=== PATIENT | male | born 1970 | race Hispanic/Latino ===

== ENCOUNTER → 2022-09-07 | Outpatient (CLI) | payer MEDICAID ==
[2022-09-07 09:14] LABS: BASOPHILS % (AUTO) 0.4 % (0.0-5.0); EOSINOPHILS % (AUTO) 1.3 % (0.0-8.0); HEMATOCRIT 45.8 % (42-54); LYMPHOCYTES % (AUTO) 30.5 % (21.0-51.0); MEAN CORPUSCULAR HEMOGLOBIN 30.5 pg (27.0-33.0); MEAN CORPUSCULAR HGB CONC 32.5 g/dL (32.0-36.0); MEAN CORPUSCULAR VOLUME 93.7 fL (79-99); MONOCYTES % (AUTO) 6.1 % (3.0-13.0); NEUTROPHILS % (AUTO) 61.3 % (40.0-77.0); PLATELET COUNT (AUTO) 273 K/uL (130-400); RED BLOOD CELL COUNT(AUTO) 4.89 MIL/uL (4.50-6.20); RED CELL DISTRIBUTION WIDTH 12.8 % (11.0-15.5); WHITE BLOOD COUNT (AUTO) 7.8 K/uL (4.8-10.8)
[2022-09-07 09:40] LABS: ALBUMIN 3.9 g/dL (3.5-5.0); POTASSIUM 4.2 mmol/L (3.5-5.1); TOTAL PROTEIN, SERUM 7.1 g/dL (6.0-8.3)
== END | disposition home or self-care (01) ==
LOC: LAB 08:31
PROVIDERS: ATTEND Internal Medicine Gastroenterology
DX: R10.12 Left upper quadrant pain (principal)
CPT/HCPCS: 36415; 80053; 82150; 83690; 85025

== ENCOUNTER → 2022-10-17 | Outpatient (CLI) | payer MEDICAID ==
[2022-10-17 12:27] LABS: BASOPHILS % (AUTO) 0.3 % (0.0-5.0); EOSINOPHILS % (AUTO) 0.8 % (0.0-8.0); HEMATOCRIT 46.3 % (42-54); LYMPHOCYTES % (AUTO) 22.5 % (21.0-51.0); MEAN CORPUSCULAR HEMOGLOBIN 30.9 pg (27.0-33.0); MEAN CORPUSCULAR HGB CONC 32.6 g/dL (32.0-36.0); MEAN CORPUSCULAR VOLUME 94.9 fL (79-99); MONOCYTES % (AUTO) 6.4 % (3.0-13.0); NEUTROPHILS % (AUTO) 69.4 % (40.0-77.0); PLATELET COUNT (AUTO) 248 K/uL (130-400); RED BLOOD CELL COUNT(AUTO) 4.88 MIL/uL (4.50-6.20); RED CELL DISTRIBUTION WIDTH 13.2 % (11.0-15.5); WHITE BLOOD COUNT (AUTO) 8.8 K/uL (4.8-10.8)
[2022-10-17 12:43] LABS: ALBUMIN 3.8 g/dL (3.5-5.0); CREATININE 1.2 mg/dL (0.5-1.5); POTASSIUM 4.1 mmol/L (3.5-5.1); TOTAL PROTEIN, SERUM 7.3 g/dL (6.0-8.3)
== END | disposition home or self-care (01) ==
LOC: LAB 10:00
PROVIDERS: ATTEND Internal Medicine Gastroenterology
DX: R10.12 Left upper quadrant pain (principal)
CPT/HCPCS: 36415; 80053; 82150; 83690; 85025

== ENCOUNTER → 2022-10-20 | Outpatient (CLI) | payer MEDICAID ==
[~2022-10-20] MED LIST: IOHEXOL 350 MG/ML 100ML INFUS..BTL IV ONE
== END | disposition home or self-care (01) ==
LOC: RAH 10-19 10:00
PROVIDERS: ATTEND Internal Medicine Gastroenterology
DX: K57.90 Diverticulosis of intestine, part unspecified, without perforation or abscess without bleeding (principal); M47.815 Spondylosis without myelopathy or radiculopathy, thoracolumbar region; R16.0 Hepatomegaly, not elsewhere classified; R10.12 Left upper quadrant pain
CPT/HCPCS: 74178; Q9967

== ENCOUNTER 2024-01-14 08:11 | Observation (INO) | payer MEDICARE ==
[~2024-01-14] VITALS: Ht 167.6 cm; Wt 105.9 kg
[~2024-01-14 08:11] MED LIST changes: +AEC81 PO; +ATOR40TA69 PO; +CLOP-31 PO; +DICY20TA3 PO; -IOHEXOL 350 MG/ML 100ML INFUS..BTL IV ONE; +ISOS30TA92 PO; +LEVO-70 PO; +LINA72CA PO; +METO50TA18 PO; +METR-172 PO; +OMEP20TA20 PO; +RANO500T2 PO
[2024-01-14 08:33] LABS: BASOPHILS # (AUTO) 0.03 K/uL (0.00-0.20); BASOPHILS % (AUTO) 0.4 % (0.0-5.0); EOSINOPHILS # (AUTO) 0.09 K/uL (0.00-0.70); EOSINOPHILS % (AUTO) 1.2 % (0.0-8.0); HEMATOCRIT 45.4 % (42-54); IMMATURE GRANULOCYTE ABSOLUTE 0.03 K/uL (0-1); LYMPHOCYTES # (AUTO) 2.4 K/uL (1.0-4.8); LYMPHOCYTES % (AUTO) 32.8 % (21.0-51.0); MEAN CORPUSCULAR HEMOGLOBIN 30.6 pg (27.0-33.0); MEAN CORPUSCULAR HGB CONC 33.5 g/dL (32.0-36.0); MEAN CORPUSCULAR VOLUME 91.3 fL (79-99); MONOCYTES # (AUTO) 0.6 K/uL (0.1-1.0); MONOCYTES % (AUTO) 7.4 % (3.0-13.0); NEUTROPHILS # (AUTO) 4.3 K/uL (1.8-7.7); NEUTROPHILS % (AUTO) 57.8 % (40.0-77.0); PLATELET COUNT (AUTO) 206 K/uL (130-400); RED BLOOD CELL COUNT(AUTO) 4.97 MIL/uL (4.50-6.20); RED CELL DISTRIBUTION WIDTH 12.3 % (11.0-15.5); WHITE BLOOD COUNT (AUTO) 7.5 K/uL (4.8-10.8)
[2024-01-14] MEDS: ASPIRIN 325MG TAB PO ONE (08:35)
[2024-01-14] MEDS: ATORVASTATIN 40 MG TABLET PO ONE (08:35)
[2024-01-14 08:39] LABS: POTASSIUM 3.8 mmol/L (3.5-5.1)
[2024-01-14 08:43] LABS: INR 0.98 (0.85-1.15); PROTHROMBIN TIME 10.6 SEC (9.6-11.6)
[2024-01-14 08:45] LABS: PARTIAL THROMBOPLASTIN TIME 27.3 SEC (26.3-35.5)
[2024-01-14] MEDS: NITROGLYCERIN 0.4 MG SL TAB SL PRN (08:46)
[2024-01-14 09:07] LABS: APPEARANCE,URINE CLEAR (CLEAR); BILIRUBIN,URINE NEGATIVE (NEGATIVE); COLOR,URINE LIGHT-YELLOW (YELLOW); GLUCOSE, URINE (UA) NEGATIVE (NEGATIVE); KETONES,URINE NEGATIVE (NEGATIVE); LEUKOCYTE ESTERASE ,URINE NEGATIVE Leu/uL (NEGATIVE); NITRATE,URINE NEGATIVE (NEGATIVE); OCCULT BLOOD,URINE NEGATIVE (NEGATIVE); PH,URINE 5.5 (5.0-8.0); PROTEIN,URINE NEGATIVE (NEGATIVE); UROBILINOGEN,URINE 0.2 mg/dL (0.2-1.0)
[2024-01-14 09:10] LABS: ADD UA MICROSCOPIC NO
[2024-01-14] MEDS ORDERED: ONDA-243 PO (12:25)
[2024-01-14] MEDS ORDERED: PANT20TA18 PO (12:25)
[2024-01-14] MEDS ORDERED: DOXY100T2 PO (12:25)
[2024-01-14] MEDS ORDERED: PLEC3TAB2 PO (12:25)
[2024-01-14] MEDS ORDERED: ZOLPIDEM TARTRATE 5 MG TAB PO PRN (13:00)
[2024-01-14] MEDS ORDERED: BENZOCAINE/MENTH/CETYLPYRD CL 1 EACH LOZENGE MM PRN (13:00)
[2024-01-14] MEDS ORDERED: MAG/ALUM/SIMETH 30 ML UDCUP PO PRN (13:00)
[2024-01-14] MEDS ORDERED: ARTIFICAL TEARS SOL 15 ML OP PRN (13:00)
[2024-01-14] MEDS ORDERED: POLYETHYLENE GLYCOL 3350 17 GM POWD.PACK PO PRN (13:00)
[2024-01-14] MEDS ORDERED: ONDANSETRON 4MG INJ IV PRN (13:00)
[2024-01-14] MEDS ORDERED: GUAIFENESIN-DM 200/20 MG 10 ML PO PRN (13:00)
[2024-01-14] MEDS ORDERED: DIPHENHYDRAMINE HCL 25 MG CAPSULE PO PRN (13:00)
[2024-01-14] MEDS ORDERED: GUAIFENESIN SUGAR-FREE 100 MG/5 ML UDCUP PO PRN (13:00)
[2024-01-14] MEDS ORDERED: ALPRAZOLAM 0.5 MG TABLET PO PRN (13:00)
[2024-01-14] MEDS ORDERED: DiphenhydrAMINE HCL 50 MG/ML VIAL IV PRN (13:00)
[2024-01-14] MEDS ORDERED: LACTULOSE 20 GM/30 ML UDCUP PO PRN (13:00)
[2024-01-14] MEDS ORDERED: NITROGLYCERIN 0.4 MG SL TAB SL PRN (13:00)
[2024-01-14] MEDS ORDERED: MORPHINE 2 MG SYG IVP PRN (16:30)
[2024-01-14] MEDS: INSULIN LISPRO 100 UNIT/ML 3ML SQ SCH (16:30)
[2024-01-14] MEDS: CLOPIDOGREL 75MG TAB PO SCH (16:33)
[2024-01-14] MEDS: CLINDAMYCIN IVPB 600MG/50ML 50 ML IV SCH (16:33)
[2024-01-14 18:35] VITALS: O2SAT 97
[2024-01-14 19:00] VITALS: BP 139/84; PULSE 103; RESP 20
[2024-01-14] MEDS: ACETAMINOPHEN 325 MG TAB PO PRN (19:18)
[2024-01-14 20:10] VITALS: O2SAT 97
[2024-01-14] MEDS: FAMOTIDINE 20MG TAB PO SCH (21:10)
[2024-01-14] MEDS: METOPROLOL TARTRATE 50 MG TAB PO SCH (21:10)
[2024-01-14] MEDS: ATORVASTATIN 40 MG TABLET PO SCH (21:10)
[2024-01-14] MEDS: RANOLAZINE 500 MG TAB.SR.12H PO SCH (21:10)
[2024-01-14] MEDS: ENOXAPARIN SODIUM 40 MG/0.4 ML SYRINGE SQ SCH (21:11)
[2024-01-14] MEDS: HYDROCODONE/ACETAMINOPHEN 7.5/325 MG TAB PO PRN (21:18)
[2024-01-14 23:00] VITALS: BP 119/79; PULSE 68; RESP 21
[2024-01-15 04:00] VITALS: BP 121/68; PULSE 86; RESP 20
[2024-01-15 05:58] LABS: HEMATOCRIT 40.2 % (42-54); MEAN CORPUSCULAR HEMOGLOBIN 30.2 pg (27.0-33.0); MEAN CORPUSCULAR HGB CONC 33.3 g/dL (32.0-36.0); MEAN CORPUSCULAR VOLUME 90.5 fL (79-99); RED BLOOD CELL COUNT(AUTO) 4.44 MIL/uL (4.50-6.20); RED CELL DISTRIBUTION WIDTH 12.4 % (11.0-15.5); WHITE BLOOD COUNT (AUTO) 5.6 K/uL (4.8-10.8)
[2024-01-15 06:23] LABS: HEMOGLOBIN A1C 6.2 % (4.0-6.0)
[2024-01-15 06:25] LABS: ALBUMIN 3.4 g/dL (3.5-5.0); BILIRUBIN,TOTAL 1.4 mg/dL (0.2-1.0); MAGNESIUM 1.7 mg/dL (1.80-2.40); POTASSIUM 3.7 mmol/L (3.5-5.1); THYROID STIMULATING HORMONE 3.59 uIU/mL (0.36-3.74); TOTAL PROTEIN, SERUM 6.5 g/dL (6.0-8.3)
[2024-01-15 07:17] VITALS: BP 114/68; PULSE 63; RESP 18
[2024-01-15 08:00] VITALS: O2SAT 98
[2024-01-15] MEDS ORDERED: MAGNESIUM 2GM PREMIX 50ML 50 ML IV PRN (08:00)
[2024-01-15] MEDS: ISOSORBIDE MONO 30MG SR TAB PO SCH (09:00)
[2024-01-15] MEDS: PLECANATIDE 3 MG PO SCH (09:00)
[2024-01-15] MEDS: ASPIRIN 81 MG EC TAB PO SCH (09:00)
[2024-01-15 10:57] VITALS: BP 138/77; PULSE 63; RESP 18
[2024-01-15] MEDS: REGADENOSON 0.4 MG/5 ML PF SYG IVP SCH (15:29)
[2024-01-15 20:00] VITALS: BP 130/74; PULSE 76; RESP 20; O2SAT 96
[2024-01-15] MEDS: DOCUSATE SODIUM 100 MG CAP PO PRN (22:28)
[2024-01-15] MEDS: ACETAMINOPHEN 325 MG TAB PO PRN (22:44)
[2024-01-16] VITALS: BP 134/73; PULSE 70; RESP 20
[2024-01-16 04:00] VITALS: BP 122/69; PULSE 65; RESP 20
[2024-01-16 05:31] LABS: HEMATOCRIT 42.6 % (42-54); MEAN CORPUSCULAR HEMOGLOBIN 31.1 pg (27.0-33.0); MEAN CORPUSCULAR VOLUME 91.4 fL (79-99); RED BLOOD CELL COUNT(AUTO) 4.66 MIL/uL (4.50-6.20); RED CELL DISTRIBUTION WIDTH 12.4 % (11.0-15.5); WHITE BLOOD COUNT (AUTO) 6.2 K/uL (4.8-10.8)
[2024-01-16 05:44] LABS: ALBUMIN 3.5 g/dL (3.5-5.0); BILIRUBIN,DIRECT 0.2 mg/dL (0.0-0.3); CREATININE 0.8 mg/dL (0.5-1.3); MAGNESIUM 2.1 mg/dL (1.80-2.40); POTASSIUM 3.7 mmol/L (3.5-5.1); TOTAL PROTEIN, SERUM 6.6 g/dL (6.0-8.3)
[2024-01-16 08:00] VITALS: O2SAT 92
[2024-01-16 08:14] VITALS: BP 129/94; PULSE 75; RESP 17
[2024-01-16 11:57] VITALS: BP 117/75; PULSE 69; RESP 18
[2024-01-16] MEDS ORDERED: CLIN-141 PO (14:48)
== END 2024-01-16 15:25 | disposition home or self-care (01) ==
LOC: EDH 08:11 → EDHIP 12:59 → 4AH 17:45
PROVIDERS: ADMIT Internal Medicine; ATTEND Internal Medicine
DX: L03.116 Cellulitis of left lower limb (principal); I11.9 Hypertensive heart disease without heart failure; K76.0 Fatty (change of) liver, not elsewhere classified; E66.01 Morbid (severe) obesity due to excess calories; M79.89 Other specified soft tissue disorders; I25.709 Atherosclerosis of coronary artery bypass graft(s), unspecified, with unspecified angina pectoris; E11.9 Type 2 diabetes mellitus without complications; E78.00 Pure hypercholesterolemia, unspecified; K57.92 Diverticulitis of intestine, part unspecified, without perforation or abscess without bleeding; I25.2 Old myocardial infarction; R60.0 Localized edema; Z79.82 Long term (current) use of aspirin; Z95.1 Presence of aortocoronary bypass graft; Z68.36 Body mass index [BMI] 36.0-36.9, adult; Z88.0 Allergy status to penicillin; Z79.899 Other long term (current) drug therapy
CPT/HCPCS: 96372 ×3; 96365; 99285; 84484 ×5; 80048 ×2; 85025; 85378 ×2; 85610; 85730; 85651; 82948 ×7; 86140; 81003; 36415 ×3; 71045; 93970; 93925; 93005; 76376; 96366 ×2; 83036; 84443; 83735 ×2; 80053; 85027 ×2; 93017; 78452; 76700; 93306; 93356; 82150; 80076; 83690; G0378 ×46; J1650 ×4; J3490 ×5; J3475; J2785; A9500 ×2; 96374

== ENCOUNTER 2024-04-17 12:26 | Observation (INO) | payer MEDICARE ==
[~2024-04-17] VITALS: Ht 170.2 cm; Wt 107.9 kg
[~2024-04-17 12:26] MED LIST changes: +CLIN-141 PO; -LEVO-70 PO; -LINA72CA PO; -METR-172 PO; -OMEP20TA20 PO; +ONDA-243 PO; +PANT20TA18 PO; +PLEC3TAB2 PO
[2024-04-17] MEDS: NITROGLYCERIN 0.4 MG SL TAB SL PRN (12:54)
[2024-04-17] MEDS: ASPIRIN 81MG CHEW TAB PO ONE (12:54)
[2024-04-17 12:59] LABS: BASOPHILS # (AUTO) 0.03 K/uL (0.00-0.20); BASOPHILS % (AUTO) 0.4 % (0.0-5.0); EOSINOPHILS # (AUTO) 0.09 K/uL (0.00-0.70); EOSINOPHILS % (AUTO) 1.2 % (0.0-8.0); HEMATOCRIT 45.1 % (42-54); IMMATURE GRANULOCYTE ABSOLUTE 0.03 K/uL (0-1); LYMPHOCYTES # (AUTO) 1.9 K/uL (1.0-4.8); LYMPHOCYTES % (AUTO) 26.1 % (21.0-51.0); MEAN CORPUSCULAR HGB CONC 33.3 g/dL (32.0-36.0); MEAN CORPUSCULAR VOLUME 90.2 fL (79-99); MONOCYTES # (AUTO) 0.4 K/uL (0.1-1.0); MONOCYTES % (AUTO) 5.7 % (3.0-13.0); NEUTROPHILS # (AUTO) 4.9 K/uL (1.8-7.7); NEUTROPHILS % (AUTO) 66.2 % (40.0-77.0); PLATELET COUNT (AUTO) 241 K/uL (130-400); RED CELL DISTRIBUTION WIDTH 12.8 % (11.0-15.5); WHITE BLOOD COUNT (AUTO) 7.3 K/uL (4.8-10.8)
[2024-04-17 13:07] LABS: CREATININE 0.9 mg/dL (0.5-1.3); POTASSIUM 3.7 mmol/L (3.5-5.1)
[2024-04-17 13:11] LABS: MAGNESIUM 1.8 mg/dL (1.80-2.40)
[2024-04-17 13:26] LABS: INR 1.04 (0.85-1.15); PROTHROMBIN TIME 11.2 SEC (9.6-11.6)
[2024-04-17 13:28] LABS: PARTIAL THROMBOPLASTIN TIME 27.6 SEC (26.3-35.5)
[2024-04-17 13:45] LABS: B-TYPE NATRIURETIC PEPTIDE 19 pg/mL (0-100)
[2024-04-17 14:43] LABS: ADD UA MICROSCOPIC YES; APPEARANCE,URINE CLEAR (CLEAR); BILIRUBIN,URINE NEGATIVE (NEGATIVE); COLOR,URINE LIGHT-YELLOW (YELLOW); GLUCOSE, URINE (UA) NEGATIVE (NEGATIVE); KETONES,URINE NEGATIVE (NEGATIVE); LEUKOCYTE ESTERASE ,URINE NEGATIVE Leu/uL (NEGATIVE); NITRATE,URINE NEGATIVE (NEGATIVE); OCCULT BLOOD,URINE NEGATIVE (NEGATIVE); PH,URINE 5.5 (5.0-8.0); PROTEIN,URINE NEGATIVE (NEGATIVE); UROBILINOGEN,URINE 0.2 mg/dL (0.2-1.0)
[2024-04-17 14:45] LABS: MUCUS,URINE RARE LPF (None Seen); WBC,URINE 0-1 /HPF (0-1)
[2024-04-17] MEDS ORDERED: LAbetaLOL 20MG SYG IV PRN (16:30)
[2024-04-17] MEDS ORDERED: LACTULOSE 20 GM/30 ML UDCUP PO PRN (16:30)
[2024-04-17] MEDS ORDERED: morPHINE 2 MG SYG IVP PRN (16:30)
[2024-04-17] MEDS ORDERED: HYDROcodone/APAP 5/325 1 TAB TABLET PO PRN (16:30)
[2024-04-17] MEDS ORDERED: hydrALAZine 20MG/ML VIAL IV PRN (16:30)
[2024-04-17] MEDS ORDERED: doCUSate SODIUM 100 MG CAP PO PRN (16:30)
[2024-04-17] MEDS ORDERED: ALBUTEROL 0.083% 2.5 MG/3 ML INH IH PRN (16:30)
[2024-04-17] MEDS ORDERED: TEMAZepam 15 MG CAPSULE PO PRN (16:30)
[2024-04-17] MEDS ORDERED: kayEXALate 15GM/60ML PO PRN (16:30)
[2024-04-17] MEDS ORDERED: ondanSETRON 4MG INJ IVP PRN (16:30)
[2024-04-17] MEDS ORDERED: cloNIDine HCL 0.1 MG TABLET PO PRN (16:30)
[2024-04-17 16:34] VITALS: PULSE 76; RESP 18; O2SAT 96
[2024-04-17] MEDS: cloPIDOgrel 300MG TAB PO ONE (17:06)
[2024-04-17] MEDS: ARTIFICAL TEARS SOL 15 ML OU SCH (17:06)
[2024-04-17] MEDS: atorVAStatin 40 MG TABLET PO SCH (17:07)
[2024-04-17] MEDS: carVEDIlol 3.125 MG TABLET PO SCH (17:10)
[2024-04-17] MEDS: IpraTROPium 0.5 MG/2.5 ML INH IH SCH (18:00)
[2024-04-17] MEDS: levoFLOXacin 500 MG/D5W 100 ML 100 ML IV SCH (19:31)
[2024-04-17 20:35] LABS: INFLUENZA TYPE A Negative For Type A (NEGATIVE); INFLUENZA TYPE B Negative For Type B (NEGATIVE)
[2024-04-17 22:36] VITALS: PULSE 88
[2024-04-17 22:38] VITALS: PULSE 88; RESP 18; O2SAT 97
[2024-04-17] MEDS ORDERED: DEXTROSE 50%-WATER 50 ML DISP.SYRIN IV PRN (23:30)
[2024-04-17] MEDS ORDERED: GLUCAGON 1MG KIT 1 MG ML IM PRN (23:30)
[2024-04-17] MEDS: INSULIN humuLIN R 100 UNIT/ML 3ML SQ SCH (23:38)
[2024-04-18] VITALS (7 sets, daily range): BP systolic 129–148; BP diastolic 58–85; PULSE 65–102; RESP 16–24; TEMP 97.5–98.6; O2SAT 98–99
[2024-04-18 05:40] LABS: HEMATOCRIT 42.9 % (42-54); MEAN CORPUSCULAR HEMOGLOBIN 31.2 pg (27.0-33.0); MEAN CORPUSCULAR HGB CONC 33.8 g/dL (32.0-36.0); MEAN CORPUSCULAR VOLUME 92.3 fL (79-99); RED BLOOD CELL COUNT(AUTO) 4.65 MIL/uL (4.50-6.20); RED CELL DISTRIBUTION WIDTH 12.7 % (11.0-15.5); WHITE BLOOD COUNT (AUTO) 7.7 K/uL (4.8-10.8)
[2024-04-18 06:09] LABS: HEMOGLOBIN A1C 6.7 % (4.0-6.0); MAGNESIUM 1.9 mg/dL (1.80-2.40); PHOSPHORUS 4.2 mg/dL (2.5-4.9); POTASSIUM 3.5 mmol/L (3.5-5.1)
[2024-04-18] MEDS: ARTIFICAL TEARS SOL 15 ML OU SCH (07:30)
[2024-04-18] MEDS: PANTOPrazole 40 MG/VIAL IVP SCH (09:12)
[2024-04-18] MEDS: ENOXAPARIN SODIUM 40 MG/0.4 ML SYRINGE SQ SCH (09:13)
[2024-04-18] MEDS ORDERED: IpraTROPium 0.5 MG/2.5 ML INH IH PRN (11:30)
[2024-04-18] MEDS ORDERED: LEVO750T68 PO (13:06)
== END 2024-04-18 17:00 | disposition home or self-care (01) ==
LOC: EDH 12:26 → EDHIP 15:54 → 4BH 04-18
PROVIDERS: ADMIT Internal Medicine; ATTEND Internal Medicine
DX: R07.89 Other chest pain (principal); Z20.822 Contact with and (suspected) exposure to COVID-19; E11.65 Type 2 diabetes mellitus with hyperglycemia; I25.10 Atherosclerotic heart disease of native coronary artery without angina pectoris; K46.9 Unspecified abdominal hernia without obstruction or gangrene; E87.1 Hypo-osmolality and hyponatremia; E78.00 Pure hypercholesterolemia, unspecified; K57.32 Diverticulitis of large intestine without perforation or abscess without bleeding; I11.9 Hypertensive heart disease without heart failure; G47.33 Obstructive sleep apnea (adult) (pediatric); E66.9 Obesity, unspecified; Z95.5 Presence of coronary angioplasty implant and graft; Z68.37 Body mass index [BMI] 37.0-37.9, adult; Z79.899 Other long term (current) drug therapy; Z95.1 Presence of aortocoronary bypass graft; Z88.0 Allergy status to penicillin
CPT/HCPCS: 83880 ×2; 96365; 96366; 99285; 84443; 82550 ×4; 83735 ×2; 84484 ×5; 80061; 80048 ×2; 85025; 85378; 85610; 85730; 87804 ×2; 82948 ×3; 87426; 81001; 36415 ×2; 71045; 93005; 94640; 96372; 96375; 83036; 84100; 85027; 84145; J1815 ×2; G0378 ×25; J1956; J2470; J1650; 94664

== ENCOUNTER 2024-11-21 13:56 | Emergency (ER) | payer MEDICARE ==
[~2024-11-21] VITALS: Ht 170.2 cm; Wt 110.7 kg
[~2024-11-21 13:56] MED LIST changes: -CLIN-141 PO; +DEXT15LI31 PO; +DOXY100C5 PO; +IPRNEB IH; +OSEL75 PO
[2024-11-21 14:39] LABS: APPEARANCE,URINE CLEAR (CLEAR); BILIRUBIN,URINE NEGATIVE (NEGATIVE); COLOR,URINE LIGHT-YELLOW (YELLOW); GLUCOSE, URINE (UA) NEGATIVE (NEGATIVE); KETONES,URINE NEGATIVE (NEGATIVE); LEUKOCYTE ESTERASE ,URINE NEGATIVE Leu/uL (NEGATIVE); NITRATE,URINE NEGATIVE (NEGATIVE); OCCULT BLOOD,URINE NEGATIVE (NEGATIVE); PH,URINE 6.5 (5.0-8.0); PROTEIN,URINE NEGATIVE (NEGATIVE); UROBILINOGEN,URINE 0.2 mg/dL (0.2-1.0)
[2024-11-21 14:41] LABS: ADD UA MICROSCOPIC YES
[2024-11-21 14:45] LABS: MUCUS,URINE FEW LPF (None Seen); RBC,URINE 0-1 /HPF (0-1); SQUAMOUS EPITHELIAL CELL,UR RARE /HPF (0-2)
[2024-11-21 14:54] LABS: BASOPHILS # (AUTO) 0.02 K/uL (0.00-0.20); BASOPHILS % (AUTO) 0.4 % (0.0-5.0); EOSINOPHILS # (AUTO) 0.07 K/uL (0.00-0.70); EOSINOPHILS % (AUTO) 1.3 % (0.0-8.0); HEMATOCRIT 42.9 % (42-54); IMMATURE GRANULOCYTE ABSOLUTE 0.02 K/uL (0-1); LYMPHOCYTES # (AUTO) 1.5 K/uL (1.0-4.8); LYMPHOCYTES % (AUTO) 28.4 % (21.0-51.0); MEAN CORPUSCULAR HEMOGLOBIN 30.6 pg (27.0-33.0); MEAN CORPUSCULAR HGB CONC 33.8 g/dL (32.0-36.0); MEAN CORPUSCULAR VOLUME 90.5 fL (79-99); MONOCYTES # (AUTO) 0.4 K/uL (0.1-1.0); MONOCYTES % (AUTO) 7.6 % (3.0-13.0); NEUTROPHILS # (AUTO) 3.3 K/uL (1.8-7.7); NEUTROPHILS % (AUTO) 61.9 % (40.0-77.0); PLATELET COUNT (AUTO) 223 K/uL (130-400); RED BLOOD CELL COUNT(AUTO) 4.74 MIL/uL (4.50-6.20); RED CELL DISTRIBUTION WIDTH 12.7 % (11.0-15.5); WHITE BLOOD COUNT (AUTO) 5.3 K/uL (4.8-10.8)
[2024-11-21 15:10] LABS: CREATININE 0.8 mg/dL (0.5-1.3); POTASSIUM 3.7 mmol/L (3.5-5.1)
--- NOTE | 2024-11-21 15:25 | ERN ---
General Chief Complaint: Flank Pain Stated Complaint: LEFT FLANK PAIN/KIDNEY STONES Time Seen by MD: 14:04 Source: patient History of Present Illness Initial Comments Patient is a 54-year-old male with a known history of renal calculi. In the beginning of this month approximately 25 days ago patient had a CT scan with his primary care physician which showed renal calculi, none of them obstructing. And no stones in his urethra is or his bladder. Patient does not have a urologist patient is experiencing flank pain and would like to get it treated. No fevers or chills no nausea vomiting diarrhea. Allergies: Coded Allergies: Penicillins (Unverified Allergy, Unknown, 02/06/23) Home Meds Active Scripts Dextromethorphan HBr (Tussin Cough) 15 Mg/5 Ml Liquid, 2.5 ML PO BID for 10 Days, #50 ML 0 Refills Prov:KIA WESTON MD 09/17/24 Doxycycline Hyclate (Doxycycline Hyclate) 100 Mg Capsule, 1 CAP PO BID for 7 Days, #14 CAP 0 Refills Prov:KIA WESTON MD 09/17/24 Oseltamivir Phosphate (Tamiflu) 75 Mg Cap, 75 MG PO BID, #4 CAP Prov:KIA WESTON MD 09/17/24 Ipratropium [place] (Atrovent Neb Soln) 0.2 Mg/Ml (0.02 %) Soln, 0.5 MG IH Q4H PRN for SHORTNESS OF BREATH, #1 Prov:KIA WESTON MD 09/17/24 Reported Medications Plecanatide (Trulance) 3 Mg Tablet, 3 MG PO DAILY PRN for CONSTIPATION, TAB 01/14/24 Pantoprazole Sodium (Pantoprazole Sodium) 20 Mg Tablet.dr, 20 MG PO DAILY, TAB 01/14/24 Ondansetron (Ondansetron Odt) 4 Mg Tab.rapdis, 4 MG PO TIDP PRN for NAUSEA/VOMITING, TAB 01/14/24 Dicyclomine HCl (Dicyclomine HCl) 20 Mg Tablet, 20 MG PO BID PRN for ABDOMINAL PAIN, TAB 02/06/23 Aspirin (ASPIRIN 81 MG ECTAB) 81 Mg Ectab, 81 MG PO DAILY, TAB.EC 8/14/23 Ranolazine (RANEXA) 500 Mg Tab.er.12h, 500 MG PO BID, TAB 02/06/23 Metoprolol Tartrate (Metoprolol Tartrate) 50 Mg Tablet, 50 MG PO BID, TAB 02/06/23 Atorvastatin Calcium (LIPITOR) 40 Mg Tablet, 40 MG PO HS, TAB 02/06/23 Isosorbide Mononitrate (Isosorbide Mononitrate ER) 30 Mg Tab.er.24h, 30 MG PO DAILY, TAB 02/06/23 Clopidogrel Bisulfate (Plavix) 75 Mg Tablet, 75 MG PO DAILY, TAB 02/06/23 Past Medical History Past Medical History: Angina, High Cholesterol, Heart Disease, Hypertension, Prostatitis Medical History Other: DIVERTICULITIS, HIATAL HERNIA, BACK PAIN, TAB Past Surgical History: Other Surgical History Other: UMBILICAL HERNIA Constitutional: (-) chills, (-) diaphoresis, (-) fever, (-) malaise, (-) weakness, (-) other documentation EENTM: (-) eye pain, (-) blurred vision, (-) tearing, (-) double vision, (-) ear pain, (-) ear discharge, (-) nose pain, (-) nose congestion, (-) throat pain, (-) Throat swelling, (-) mouth pain, (-) tooth pain, (-) mouth swelling, (-) other documentation Respiratory: (-) cough, (-) orthopnea, (-) short of breath, (-) stridor, (-) wheezing, (-) other documentation Cardiovascular: (-) chest pain, (-) edema, (-) palpitations, (-) syncope, (-) dyspnea on exertion, (-) other documentation Gastrointestinal/Abdominal: (-) nausea, (-) vomiting, (-) diarrhea, (-) abdominal pain, (-) abdominal distention, (-) constipation, (-) rectal bleeding, (-) dark stool/melena, (-) other documentation Genitourinary: (-) penile discharge, (-) dysuria, (-) frequency, (-) hematuria, (-) pain, (-) other documentation Musculoskeletal: (+) back pain Skin: (-) laceration, (-) contusion, (-) abrasion, (-) abscess, (-) rash, (-) change in color, (-) change in hair, (-) change in nails, (-) diaphoresis, (-) dryness, (-) other documentation Physical Exam General Appearance: (+) no apparent distress Orientation: (+) alert, (+) oriented x 3 Eye: bilateral eye normal inspection, bilateral eye PERRL, bilateral eye EOMI Ear, Nose, Throat: (+) hearing grossly normal, (+) normal ENT inspection, (+) moist mucous membraine Neck: (+) normal inspection, (+) supple Respiratory: (+) chest non-tender, (+) lungs clear Heart: (+) regular, (+) no gallop Vascular: (+) no edema, (+) normal peripheral pulse Gastrointestinal: (+) soft, (+) non-tender, (+) no organomegaly Results Laboratory and Microbiology Lab and Micro Result Laboratory Tests Test 11/21/24 14:28 11/21/24 14:35 Urine Color LIGHT-YELLOW (YELLOW) Urine Appearance CLEAR (CLEAR) Urine pH 6.5 (5.0-8.0) Urine Specific [place] 1.017 (1.001-1.031) Urine Protein NEGATIVE mg/dL (NEGATIVE) Urine Glucose (UA) NEGATIVE mg/dL (NEGATIVE) Urine Ketones NEGATIVE mg/dL (NEGATIVE) Urine Occult Blood NEGATIVE (NEGATIVE) Urine Nitrate NEGATIVE (NEGATIVE) Urine Bilirubin NEGATIVE mg/dL (NEGATIVE) Urine Urobilinogen 0.2 mg/dL (0.2-1.0) Urine Leukocyte Esterase NEGATIVE Blu/uL Urine RBC 0-1 /HPF (0-1) Urine WBC 2-5 /HPF (0-1) H Urine Squamous Epithelial Cells RARE /HPF (0-2) Urine Bacteria None /HPF (None Seen) White Blood Count 5.3 K/uL (4.8-10.8) Red Blood Count 4.74 MIL/uL (4.50-6.20) Hemoglobin 14.5 g/dL (14.0-18.0) Hematocrit 42.9 % (42-54) Mean Corpuscular Volume 90.5 fL (79-99) Mean Corpuscular Hemoglobin 30.6 pg (27.0-33.0) Mean Corpuscular Hemoglobin Concent 33.8 g/dL (32.0-36.0) Red Cell Distribution Width 12.7 % (11.0-15.5) Platelet Count 223 K/uL (130-400) Mean Platelet Volume 10.3 fL (7.5-10.5) Immature Granulocyte % (Auto) 0.4 % (0-1) Neutrophils (%) (Auto) 61.9 % (40.0-77.0) Lymphocytes (%) (Auto) 28.4 % (21.0-51.0) Monocytes (%) (Auto) 7.6 % (3.0-13.0) Eosinophils (%) (Auto) 1.3 % (0.0-8.0) Basophils (%) (Auto) 0.4 % (0.0-5.0) Neutrophils # (Auto) 3.3 K/uL (1.8-7.7) Lymphocytes # (Auto) 1.5 K/uL (1.0-4.8) Monocytes # (Auto) 0.4 K/uL (0.1-1.0) Eosinophils # (Auto) 0.07 K/uL (0.00-0.70) Basophils # (Auto) 0.02 K/uL (0.00-0.20) Absolute Immature Granulocyte (auto 0.02 K/uL (0-1) Nucleated Red Blood Cells 0.0 % (0.0-0.19) Sodium Level 141 mmol/L (136-145) Potassium Level 3.7 mmol/L (3.5-5.1) Chloride Level 104 mmol/L (101-111) Carbon Dioxide Level 28 mmol/L (21-32) Blood Urea Nitrogen 8 mg/dL (7-18) Creatinine 0.8 mg/dL (0.5-1.3) Glomerular Filtration Rate Calc 105 mL/min (>90) Random Glucose 130 mg/dL (70-105) H Total Calcium 8.4 mg/dL (8.5-10.1) L MDM I will do a quick noncontrast CT scan to be sure none of the patient's stones have migrated. I will give him some pain control and a prescription for pain medications. I reiterated to the patient he needs a urologist. Patient's chemistry panel CBC are normal UA is normal. CT scan shows one left renal pelvis stone that is nonobstructing. I will discharge the patient with some meloxicam. I will stress again he needs to find a urologist. ED Course Orders Procedure Category Date Status Time Cbc With Differential LAB 11/21/24 Complete 14:11 Basic Metabolic Panel LAB 11/21/24 Complete 14:11 Urinalysis Profile LAB 11/21/24 Complete 14:11 Ct Abdomen/Pelvis W/O CT 11/21/24 Resulted Contrast 15:26 Vital Signs Date Time Temp Pulse Resp B/P (MAP) Pulse Ox O2 Delivery O2 Flow Rate FiO2 11/21/24 14:02 98.2 71 18 133/85 95 0 DX & DISP Disposition: Discharge Departure Impression: Primary Impression: Nephrolithiasis Condition: Stable Scripts Meloxicam, Submicronized (Meloxicam) 5 Mg Capsule 5 MG PO DAILY for nephrolithiasis for 10 Days, #10 CAP Prov: RIP GEE MD 11/21/24 Additional Instructions: Please follow-up with her primary care provider for further pain medication needs. Please return if you have fevers chills signs of infection. Please see your urologist for helping rid yourself of the stones. Referrals: SANDY WAY DO (PCP) RIP GEE MD November 21, 2024 15:25
--- NOTE | 2024-11-21 16:04 | HMCIMG ---
CT ABDOMEN/PELVIS W/O CONTRAST HISTORY: Left flank pain COMPARISON: 10/20/2022 TECHNIQUE: Multiple sequential axial images of the abdomen and pelvis were obtained from the dome of the diaphragm through symphysis pubis. Patient was not given contrast through intravenous route. Oral contrast was not given. FINDINGS: No pleural effusion is seen bilaterally. There is no evidence of parenchymal disease or pulmonary nodule of the visualized lower lungs. Degenerative changes of the thoracolumbar spine are present. The heart is not enlarged. Liver measures 20 cm. The liver, spleen, adrenal glands and pancreas are unremarkable. There is no evidence of hydronephrosis bilaterally. There is 2 mm of the renal pelvis stone. There is diverticulosis. Fecal material is seen in the colon. There are normal size retroperitoneal and mesenteric lymph nodes. No ascites is seen. No CT evidence of acute appendicitis is seen. Pelvic sidewalls are symmetric bilaterally. The bladder is poorly distended IMPRESSION: 1. 2 mm left renal pelvis stone. No hydronephrosis. Diverticulosis. CT was performed with one or more following dose reduction techniques: automated exposure control, adjustment of the mA and kv according to patient's size, or use of a iterative reconstruction technique.
[2024-11-21] MEDS ORDERED: MELO5CAP3 PO (16:16)
[2024-11-21 16:37] VITALS: BP 148/84; PULSE 79; RESP 14; TEMP 98.1; O2SAT 96
== END 2024-11-21 16:40 | disposition home or self-care (01) ==
LOC: EDH 13:56
DX: N20.0 Calculus of kidney (principal); E78.00 Pure hypercholesterolemia, unspecified; I10 Essential (primary) hypertension; Z79.02 Long term (current) use of antithrombotics/antiplatelets; Z79.82 Long term (current) use of aspirin; Z79.899 Other long term (current) drug therapy; Z88.0 Allergy status to penicillin
CPT/HCPCS: 36415; 74176; 80048; 81001; 85025; 99284

== ENCOUNTER 2025-01-24 20:32 | Emergency (ER) | payer MEDICARE, MEDICAID ==
[~2025-01-24] VITALS: Ht 170.2 cm; Wt 104.3 kg
[~2025-01-24 20:32] MED LIST changes: +MELO5CAP3 PO
--- NOTE | 2025-01-24 20:34 | NUR ---
CARDIAC [address] TO LEFT UPPER CHEST
[2025-01-24 20:52] LABS: ADD UA MICROSCOPIC NO; APPEARANCE,URINE CLEAR (CLEAR); GLUCOSE, URINE (UA) NEGATIVE (NEGATIVE); LEUKOCYTE ESTERASE ,URINE NEGATIVE Leu/uL (NEGATIVE); NITRATE,URINE NEGATIVE (NEGATIVE); OCCULT BLOOD,URINE NEGATIVE (NEGATIVE)
--- NOTE | 2025-01-24 21:10 | ERN ---
General Chief Complaint: Chest Pain Stated Complaint: CHEST PAIN Time Seen by MD: 20:33 Source: patient History of Present Illness Initial Comments 54-year-old male with a past medical history of multiple acute MIs. He is status post CABG. He comes in with left chest pain that feels different from the kind of pain he has had with his prior heart attacks but he is concerned. He has no other symptoms: No shortness of breath no lightheadedness no nausea vomiting or weakness. Taking a deep breath has no effect on the pain. Timing/Duration: 24 hours Allergies: Coded Allergies: Penicillins (Unverified Allergy, Unknown, 02/06/23) Home Meds Active Scripts Meloxicam, Submicronized (Meloxicam) 5 Mg Capsule, 5 MG PO DAILY for nephrolithiasis for 10 Days, #10 CAP Prov:RIP GEE MD 11/21/24 Dextromethorphan HBr (Tussin Cough) 15 Mg/5 Ml Liquid, 2.5 ML PO BID for 10 Days, #50 ML 0 Refills Prov:KIA WESTON MD 09/17/24 Doxycycline Hyclate (Doxycycline Hyclate) 100 Mg Capsule, 1 CAP PO BID for 7 Days, #14 CAP 0 Refills Prov:KIA WESTON MD 09/17/24 Oseltamivir Phosphate (Tamiflu) 75 Mg Cap, 75 MG PO BID, #4 CAP Prov:KIA WESTON MD 09/17/24 Ipratropium [place] (Atrovent Neb Soln) 0.2 Mg/Ml (0.02 %) Soln, 0.5 MG IH Q4H PRN for SHORTNESS OF BREATH, #1 Prov:KIA WESTON MD 09/17/24 Reported Medications Plecanatide (Trulance) 3 Mg Tablet, 3 MG PO DAILY PRN for CONSTIPATION, TAB 01/14/24 Pantoprazole Sodium (Pantoprazole Sodium) 20 Mg Tablet.dr, 20 MG PO DAILY, TAB 01/14/24 Ondansetron (Ondansetron Odt) 4 Mg Tab.rapdis, 4 MG PO TIDP PRN for NAUSEA/VOMITING, TAB 01/14/24 Dicyclomine HCl (Dicyclomine HCl) 20 Mg Tablet, 20 MG PO BID PRN for ABDOMINAL PAIN, TAB 02/06/23 Aspirin (ASPIRIN 81 MG ECTAB) 81 Mg Ectab, 81 MG PO DAILY, TAB.EC 02/06/23 Ranolazine (RANEXA) 500 Mg Tab.er.12h, 500 MG PO BID, TAB 02/06/23 Metoprolol Tartrate (Metoprolol Tartrate) 50 Mg Tablet, 50 MG PO BID, TAB 02/06/23 Atorvastatin Calcium (LIPITOR) 40 Mg Tablet, 40 MG PO HS, TAB 02/06/23 Isosorbide Mononitrate (Isosorbide Mononitrate ER) 30 Mg Tab.er.24h, 30 MG PO DAILY, TAB 02/06/23 Clopidogrel Bisulfate (Plavix) 75 Mg Tablet, 75 MG PO DAILY, TAB 02/06/23 Past Medical History Past Medical History: Angina, High Cholesterol, Heart Disease, Hypertension, [place], Prostatitis Medical History Other: DIVERTICULITIS, HIATAL HERNIA, BACK PAIN, TAB, DE X 3 Past Surgical History: CABG, Other Surgical History Other: UMBILICAL HERNIA Constitutional: (-) chills, (-) diaphoresis, (-) fever, (-) malaise, (-) weakness, (-) other documentation EENTM: (-) eye pain, (-) blurred vision, (-) tearing, (-) double vision, (-) ear pain, (-) ear discharge, (-) nose pain, (-) nose congestion, (-) throat pain, (-) Throat swelling, (-) mouth pain, (-) tooth pain, (-) mouth swelling, (-) other documentation Respiratory: (-) cough, (-) orthopnea, (-) short of breath, (-) stridor, (-) wheezing, (-) other documentation Cardiovascular: (+) chest pain Gastrointestinal/Abdominal: (-) nausea, (-) vomiting, (-) diarrhea, (-) abdominal pain, (-) abdominal distention, (-) constipation, (-) rectal bleeding, (-) dark stool/melena, (-) other documentation Musculoskeletal: (-) Neck pain, (-) back pain, (-) Flank Pain, (-) joint pain, (-) joint swelling, (-) muscle pain, (-) muscle stiffness, (-) gout, (-) other documentation Neuro: (-) altered mental status, (-) headache, (-) syncope, (-) paralysis, (-) numbness, (-) seizure, (-) pre-existing deficit, (-) tremors, (-) weakness, (-) dizziness, (-) slurred speech, (-) vertigo, (-) other documentation Physical Exam General Appearance: (+) no apparent distress Orientation: (+) alert, (+) oriented x 3 Head/Face Trauma: No Eye: bilateral eye normal inspection, bilateral eye PERRL, bilateral eye EOMI Ear, Nose, Throat: (+) hearing grossly normal, (+) normal ENT inspection Neck: (+) normal inspection, (+) supple, (+) full range of motion Respiratory: (+) chest non-tender, (+) lungs clear, (+) well ventilated Heart: (+) regular, (+) murmur Vascular: (+) no edema, (+) normal peripheral pulse, (+) no JVD Gastrointestinal: (+) soft, (+) non-tender, (+) bowel sound present Extremities: (+) normal range of motion, (+) non-tender, (+) normal inspection Results Laboratory and Microbiology Lab and Micro Result Laboratory Tests Test 01/24/25 20:39 01/24/25 20:44 Urine Color COLORLESS (YELLOW) Urine Appearance CLEAR (CLEAR) Urine pH 6.5 (5.0-8.0) Urine Specific [place] 1.003 (1.001-1.031) Urine Protein NEGATIVE mg/dL (NEGATIVE) Urine Glucose (UA) NEGATIVE mg/dL (NEGATIVE) Urine Ketones NEGATIVE mg/dL (NEGATIVE) Urine Occult Blood NEGATIVE (NEGATIVE) Urine Nitrate NEGATIVE (NEGATIVE) Urine Bilirubin NEGATIVE mg/dL (NEGATIVE) Urine Urobilinogen 0.2 mg/dL (0.2-1.0) Urine Leukocyte Esterase NEGATIVE Blu/uL White Blood Count 6.3 K/uL (4.8-10.8) Red Blood Count 4.36 MIL/uL (4.50-6.20) L Hemoglobin 13.6 g/dL (14.0-18.0) L Hematocrit 40.5 % (42-54) L Mean Corpuscular Volume 92.9 fL (79-99) Mean Corpuscular Hemoglobin 31.2 pg (27.0-33.0) Mean Corpuscular Hemoglobin Concent 33.6 g/dL (32.0-36.0) Red Cell Distribution Width 12.6 % (11.0-15.5) Platelet Count 221 K/uL (130-400) Mean Platelet Volume 10.6 fL (7.5-10.5) H Immature Granulocyte % (Auto) 0.3 % (0-1) Neutrophils (%) (Auto) 57.5 % (40.0-77.0) Lymphocytes (%) (Auto) 31.9 % (21.0-51.0) Monocytes (%) (Auto) 8.7 % (3.0-13.0) Eosinophils (%) (Auto) 1.1 % (0.0-8.0) Basophils (%) (Auto) 0.5 % (0.0-5.0) Neutrophils # (Auto) 3.7 K/uL (1.8-7.7) Lymphocytes # (Auto) 2.0 K/uL (1.0-4.8) Monocytes # (Auto) 0.6 K/uL (0.1-1.0) Eosinophils # (Auto) 0.07 K/uL (0.00-0.70) Basophils # (Auto) 0.03 K/uL (0.00-0.20) Absolute Immature Granulocyte (auto 0.02 K/uL (0-1) Nucleated Red Blood Cells 0.0 % (0.0-0.19) Sodium Level 141 mmol/L (136-145) Potassium Level 3.7 mmol/L (3.5-5.1) Chloride Level 106 mmol/L (101-111) Carbon Dioxide Level 27 mmol/L (21-32) Blood Urea Nitrogen 7 mg/dL (7-18) Creatinine 0.8 mg/dL (0.5-1.3) Glomerular Filtration Rate Calc 105 mL/min (>90) Random Glucose 102 mg/dL (70-105) Total Calcium 8.5 mg/dL (8.5-10.1) Total Creatine Kinase 98 U/L (21-232) Troponin I High Sensitivity 6 ng/L (4-75) B-Type Natriuretic Peptide 30 pg/mL (0-100) MDM MDM: Differential diagnosis: Cardiac ischemia, pleuritic pain, pneumothorax, muscle sprain, dehydration, pneumonia Rationale: Tests considered and ordered secondary to shared decision making include: Previous outside records reviewed: Old ER visits. Risk of complication and/or morbidity or mortality of patient management: None Medications-Per medication reconciliation Need for hospitalization: Patient does meet criteria for hospitalization. Need for emergency major/minor surgery: No There are no social concerns with this patient. Prescription drug management Prescriptions will include symptomatic care Patient's prior external medical records from other ER visits were reviewed by me as indicated. Prior testing and results from previous visits were reviewed. Prior tests were taken into account with medical decision making and resource utilization, independent historian/historians were used to obtain complete medical history. I independently interpreted the test that were performed, results were reviewed by me and considered findings on radiology if ordered. EKG shows normal sinus rhythm with a left anterior fascicular block and no ischemic changes. Patient's troponin levels and BNP levels are normal, as is his chest x-ray, CBC urine and chemistry panel. ED Course Orders Procedure Category Date Status Time Vital Signs Per CPOE 01/24/25 Transmitted Routine 20:33 Chest 1vw RAD 01/24/25 Taken 20:33 12 Lead Ekg Tracing- EKG 01/24/25 Logged Technical 20:33 Oxygen By Nc/Pulse Ox CPOE 01/24/25 Transmitted 20:33 Maintain Iv CPOE 01/24/25 Transmitted 20:33 Iv Insertion CPOE 01/24/25 Transmitted 20:33 Cardiac Monitoring CPOE 01/24/25 Transmitted 20:33 Pulse Oximetry With CPOE 01/24/25 Transmitted Vs And Prn 20:33 Cbc With Differential LAB 01/24/25 Complete 20:33 Activity: Br W/Brp CPOE 01/24/25 Transmitted With Assist 20:33 Creatine Kinase, Total LAB 01/24/25 Complete 20:33 Troponin I High LAB 01/24/25 Complete Sensitivity 20:33 Urinalysis Profile LAB 01/24/25 Complete 20:33 Basic Metabolic Panel LAB 01/24/25 Complete 20:33 Lactated Ringers PHA 01/24/25 Complete 1000ml (Lactated 21:01 B-Type Natriuretic LAB 01/24/25 Complete Peptide 21:01 Current Medications Medications (Trade) Dose Ordered Sig/Jayshree Route PRN Reason Start Time Stop Time Status Last Admin Dose Admin Lactated Ringer's (Lactated Ringers 1000ml) 1,000 ml BOLUS STAT IV 01/24/25 21:01 01/24/25 21:05 DC 01/24/25 21:20 Vital Signs Date Time Temp Pulse Resp B/P (MAP) Pulse Ox O2 Delivery O2 Flow Rate FiO2 01/24/25 20:59 80 18 140/80 98 Room Air* 0 21 01/24/25 20:33 97.0 82 18 146/92 98 Room Air DX & DISP Disposition: Discharge Departure Impression: Primary Impression: Chest wall pain Condition: Stable Additional Instructions: You have come to the emergency room to evaluate chest pain. Your EKG is normal there are no ischemic changes on it and we have no evidence of damage to your cardiac tissue. Your chest x-ray was also normal. I suspect it maybe just a little muscle pain or rib pain. I can not totally explain your symptoms but it is reassuring to know that there was no evidence of any damage to your heart. Please follow-up with her primary care physician if this does not get better in the next several days. You can take Tylenol or Motrin for pain control. Referrals: MARRY ALLEN (PCP) RIP GEE MD Jan 24, 2025 21:10
[2025-01-24] MEDS: LACTATED RINGERS 1000ML IV STA (21:20)
[2025-01-24 21:24] LABS: IMMATURE GRANULOCYTE ABSOLUTE 0.02 K/uL (0-1); NUCLEATED RED BLOOD CELLS 0.0 % (0.0-0.19); PLATELET COUNT (AUTO) 221 K/uL (130-400); RED BLOOD CELL COUNT(AUTO) 4.36 MIL/uL (4.50-6.20); RED CELL DISTRIBUTION WIDTH 12.6 % (11.0-15.5); WHITE BLOOD COUNT (AUTO) 6.3 K/uL (4.8-10.8)
[2025-01-24 21:38] LABS: CREATININE 0.8 mg/dL (0.5-1.3); GLOMERULAR FILTR. RATE CALC 105.0 mL/min (>90); GLUCOSE,RANDOM 102.0 mg/dL (70-105); SODIUM SERUM 141.0 mmol/L (136-145); UREA NITROGEN, BLOOD 7.0 mg/dL (7-18)
[2025-01-24 21:43] LABS: CREATINE KINASE, TOTAL 98.0 U/L (21-232)
[2025-01-24 22:09] VITALS: BP 127/76; PULSE 76; RESP 18; TEMP 98.3; O2SAT 98
--- NOTE | 2025-01-24 22:37 | HMCIMG ---
EXAM: CR Chest, 1 view CLINICAL HISTORY: Chest pain. COMPARISON: Chest radiograph dated 09/13/2024. FINDINGS: Mild cardiomegaly and pulmonary vascular congestion. Status poststernotomy. No effusion, pneumothorax. Small right diaphragmatic eventration. A metallic object overlies the left upper lateral thorax. No acute osseous abnormality. IMPRESSION: Mild cardiomegaly and pulmonary vascular congestion. Status poststernotomy. No interval changes. /[place]
--- NOTE | 2025-01-25 09:38 | EKG ---
[facility] Test Date: 2025-01-24 Test Time: 20:30:59 Pat Name: MIGUEL RICKS Department: [facility] Room: Gender: M Cover Creaser: [id number] : [id number] Requested By: RIP GEE Order Number: [id number] Reading MD: Mello Sandoval Measurements Intervals [place] Rate: 77 P: 22 MN: 176 QRS: -54 QRSD: 104 T: 64 QT: 389 QTc: 440 Interpretive Statements Sinus rhythm LAD, consider left anterior fascicular block Compared to ECG 09/13/2024 09:07:50 No significant changes Electronically Signed On 01-26-2025 11:03:50 CDT by Mello Sandoval Please click the below link to view image of tracing.
== END 2025-01-24 22:17 | disposition home or self-care (01) ==
LOC: EDH 20:32
DX: R07.89 Other chest pain (principal); I11.9 Hypertensive heart disease without heart failure; E78.00 Pure hypercholesterolemia, unspecified; I25.2 Old myocardial infarction; Z79.02 Long term (current) use of antithrombotics/antiplatelets; Z79.1 Long term (current) use of non-steroidal anti-inflammatories (NSAID); Z79.82 Long term (current) use of aspirin; Z79.899 Other long term (current) drug therapy; Z88.0 Allergy status to penicillin; Z95.1 Presence of aortocoronary bypass graft
CPT/HCPCS: 99285; 96360; 71045; 82550; 84484; 80048; 83880; 85025; 81003; 36415; 93005; J7120